=== PATIENT | male | born 2000 | race Caucasian/White ===

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

== ENCOUNTER 2019-05-03 12:49 | Emergency (ER) | payer BC ==
[2019-05-03 12:55] VITALS: BP 138/81
--- OUTSIDE RECORDS SUMMARY | 2019-05-03 13:40 | XMS REPORT | Continuity of Care Document ---
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 Onset: 03/10/2015 Autistic disorder Yazmin Pineda MD Onset: 08/29/2016 Epilepsy Yazmin Pineda MD Onset: 09/08/2015 Social History Type Date Description Comments Sex Unknown ETOH Use Never used alcohol Tobacco Use Start: Unknown Patient has never smoked Not exposed to second hand smoke Smoking Status Reviewed: 04/04/19 Patient has never smoked Not exposed to second hand smoke Allergies, Adverse Reactions, Alerts Description No Known Drug Allergies Medications Active Medications SIG Qnty Indications Ordering Provider Date Depakote 1 tab by mouth 60tabs Luis A Gracia MD 02/28/2019 500mg Tablets twice a day DR Gerard 5 tabs by mouth 300tabs Luis A Gracia MD 12/11/2013 500mg Tablets in am and 6 tabs in the pm Immunizations Description No Information Available Vital Signs Date Vital Result Comment 04/04/2019 10:50am Height 63.5 inches 5'3.50" Weight 170.00 lb Heart Rate 72 /min BP Systolic Sitting 115 mmHg BP Diastolic Sitting 80 mmHg Respiratory Rate 20 /min BMI (Body Mass Index) 29.6 kg/m2 Height Percentile 3 % Weight Percentile 72nd 01/17/2019 10:04am Height 63.5 inches 5'3.50" Weight 172.00 lb Heart Rate 72 /min BP Systolic Sitting 100 mmHg BP Diastolic Sitting 80 mmHg O2 % BldC Oximetry 98 % BMI (Body Mass Index) 30.0 kg/m2 Height Percentile 3 % Weight Percentile 75th Results Test Date Facility Test Result H/L Range Note Laboratory test 02/19/2019 [facility] Levetiracetam 41.2 g/mL [address] [facility] [place] [address] [phone] Laboratory test 11/16/2018 [facility] Levetiracetam 34.8 g/mL 2 finding [address] [facility] ([facility] [place] [address] [phone] 1 REFERENCE VALUE 12.0 - 46.0 ADDITIONAL INFORMATION This test was developed and its performance characteristics determined by [facility] in a manner consistent with CLIA requirements. This test has not been cleared or approved by the U.S. Food and Drug Administration. Test Performed by: [facility] [employer] - [address] [address] 2 REFERENCE VALUE 12.0 - 46.0 ADDITIONAL INFORMATION This test was developed and its performance characteristics determined by [facility] in a manner consistent with CLIA requirements. This test has not been cleared or approved by the U.S. Food and Drug Administration. 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 Assessments Date Code Description Provider 04/04/2019 G40.909 Epilepsy, unspecified, not intractable, without Luis A Gracia MD status epile 04/04/2019 F84.0 Autistic disorder Luis A Gracia MD 01/17/2019 G40.909 Epilepsy, unspecified, not intractable, without Luis A Gracia MD status epile 01/17/2019 F84.0 Autistic disorder Lius A Gracia MD 01/17/2019 Z79.899 Other long-term (current) drug therapy Luis A Gracia MD Plan of Treatment Future Appointment(s):10/07/2019 9:30 am - Luis A Gracia MD at [facility]04/04/2019 - Luis A Gracia MDG40.909 Epilepsy, unspecified, not intractable, without status epileComments:breakthrough grand mal seizure on high therapeutic keppra and tolerating the start of depakote without problem. Will check trough level and then will adjust if need be and then wean keppra. Will check level now and also before next visitFollow up:6 [id number] Autistic disorder Functional Status Description No Information Available Mental Status Description No Information Available Referrals Description No Information Available
== END 2019-05-03 14:01 | disposition left against medical advice (07) ==
LOC: ED 12:49
DX: Z53.21 Procedure and treatment not carried out due to patient leaving prior to being seen by health care provider (principal); R51 Headache
CPT/HCPCS: 99281